=== PATIENT | male | born 1995 | race Two or more races ===

== ENCOUNTER 2022-06-10 11:51 | Emergency (ER) | payer MEDICAID ==
[~2022-06-10] VITALS: Ht 172.7 cm; Wt 114.0 kg
[2022-06-10] MEDS ORDERED: MIDAZOLAM HCL 2 MG/2 ML VIAL IV ONE ×3 (12:15→20:45)
[2022-06-10] MEDS ORDERED: SODIUM CHLORIDE 0.9% 1,000 ML IV ONE ×3 (12:15→20:45)
[2022-06-10 12:48] LABS: BASOPHILS % 0.4 % (0.0-2.0); EOSINOPHILS % 0.1 % (0.0-5.0); HEMATOCRIT. 42.1 % (42.0-52.0); HEMOGLOBIN. 14.1 g/dL (14.0-18.0); LYMPHOCYTES % 15.6 % (20.0-50.0); MEAN CORPUSCULAR HEMOGLOBIN 25.9 pg (28.0-32.0); MEAN CORPUSCULAR VOLUME 77.4 fL (80.0-94.0); MONOCYTES % 9.5 % (2.0-8.0); NEUTROPHILS % 74.4 % (40.0-76.0); PLATELET 357 x1000/uL (130-400); RED BLOOD CELL COUNT 5.44 mill/uL (4.7-6.1); RED CELL DISTRIBUTION WIDTH 15.2 % (11.6-14.6)
[2022-06-10 12:55] LABS: CHLORIDE 108 mEq/L (98-107)
[2022-06-10 13:05] LABS: ETHANOL BLOOD < 10 mg/dL
[2022-06-10] MEDS ORDERED: MIDAZOLAM HCL 2 MG/2 ML VIAL IV NR (14:00)
[2022-06-10] MEDS ORDERED: OLANZAPINE 10 MG/VIAL IM ONE (14:45)
[2022-06-10] MEDS ORDERED: OLANZAPINE 10 MG/VIAL IM NR (23:30)
[2022-06-11] MEDS ORDERED: MIDAZOLAM HCL 2 MG/2 ML VIAL IV NR (00:15)
[2022-06-11] MEDS ORDERED: DIPHENHYDRAMINE 50MG/ML VIAL IV ONE (02:45)
[2022-06-11] MEDS ORDERED: HALOPERIDOL LACTATE 5MG/ML VIAL IM ONE (02:45)
[2022-06-11 07:05] LABS: CLARITY URINE CLEAR (CLEAR); COLOR URINE DARK YELLOW (YELLOW); KETONES URINE NEGATIVE (NEGATIVE); LEUKOCYTE ESTERASE URINE NEGATIVE (NEGATIVE); NITRITE URINE NEGATIVE (NEGATIVE); OCCULT BLOOD URINE NEGATIVE (NEGATIVE); PH URINE 5.5 (4.5-8.0); PROTEIN URINE 1+ (NEGATIVE); SPECIFIC GRAVITY URINE 1.033 (1.005-1.030); UROBILINOGEN URINE 0.2 E.U./dL (0.2-1.0)
[2022-06-11 07:19] LABS: *AMPHETAMINES SCREEN URINE PRESUMTIVE POSITIVE (NEGATIVE); *BARBITURATES SCREEN URINE NEGATIVE (NEGATIVE); *BENZODIAZEPINES SCREEN URINE PRESUMTIVE POSITIVE (NEGATIVE); *COCAINE SCREEN URINE PRESUMTIVE POSITIVE (NEGATIVE); CANNABINOID URINE SCREEN PRESUMTIVE POSITIVE (NEGATIVE); METHADONE URINE SCREEN NEGATIVE (NEGATIVE); OPIATES URINE SCREEN NEGATIVE (NEGATIVE); PHENCYCLIDINE URINE SCREEN NEGATIVE (NEGATIVE)
[2022-06-11 07:58] VITALS: BP 134/77
== END 2022-06-11 09:15 | disposition left against medical advice (07) ==
LOC: ER 11:57
DX: F23 Brief psychotic disorder (principal); U07.1 COVID-19; F15.10 Other stimulant abuse, uncomplicated; R00.0 Tachycardia, unspecified; R45.851 Suicidal ideations; F14.10 Cocaine abuse, uncomplicated; F16.10 Hallucinogen abuse, uncomplicated; F12.10 Cannabis abuse, uncomplicated
CPT/HCPCS: 36415; 80053; 80305; 80307; 80320; 80329; 81003; 82962; 85025; 93005; 96361; 96372; 96374; 96375; 96376; 99285; C9803; J1200; J1630; J2250; J3490; J7030; U0003; U0005; Z7610; G0480

== ENCOUNTER 2022-06-30 16:44 | Emergency (ER) | payer MEDICAID ==
[~2022-06-30] VITALS: Ht 182.9 cm; Wt 100.0 kg
[2022-06-30 18:43] LABS: CHLORIDE 104 mEq/L (98-107)
[2022-06-30 18:45] LABS: BASOPHILS % 0.3 % (0.0-2.0); EOSINOPHILS % 0.2 % (0.0-5.0); HEMATOCRIT. 44.2 % (42.0-52.0); HEMOGLOBIN. 14.5 g/dL (14.0-18.0); LYMPHOCYTES % 19.5 % (20.0-50.0); MEAN CORPUSCULAR HEMOGLOBIN 25.6 pg (28.0-32.0); MEAN CORPUSCULAR VOLUME 78.4 fL (80.0-94.0); MEAN PLATELET VOLUME 8.2 fl (7.4-10.4); MONOCYTES % 9.5 % (2.0-8.0); NEUTROPHILS % 70.5 % (40.0-76.0); PLATELET 371 x1000/uL (130-400); RED BLOOD CELL COUNT 5.64 mill/uL (4.7-6.1); RED CELL DISTRIBUTION WIDTH 15.6 % (11.6-14.6)
[2022-06-30 18:53] LABS: ETHANOL BLOOD < 10 mg/dL
[2022-06-30] MEDS ORDERED: HALOPERIDOL LACTATE 5MG/ML VIAL IM ONE (19:15)
[2022-07-01] MEDS ORDERED: OLANZAPINE 2.5MG TABLET PO SCH (03:00)
[2022-07-01 03:01] LABS: CLARITY URINE CLEAR (CLEAR); COLOR URINE DARK YELLOW (YELLOW); KETONES URINE NEGATIVE (NEGATIVE); LEUKOCYTE ESTERASE URINE NEGATIVE (NEGATIVE); NITRITE URINE NEGATIVE (NEGATIVE); OCCULT BLOOD URINE NEGATIVE (NEGATIVE); PROTEIN URINE TRACE (NEGATIVE); SPECIFIC GRAVITY URINE 1.032 (1.005-1.030)
[2022-07-01 03:16] LABS: *AMPHETAMINES SCREEN URINE PRESUMTIVE POSITIVE (NEGATIVE); *BARBITURATES SCREEN URINE NEGATIVE (NEGATIVE); *BENZODIAZEPINES SCREEN URINE NEGATIVE (NEGATIVE); *COCAINE SCREEN URINE NEGATIVE (NEGATIVE); CANNABINOID URINE SCREEN PRESUMTIVE POSITIVE (NEGATIVE); METHADONE URINE SCREEN NEGATIVE (NEGATIVE); OPIATES URINE SCREEN NEGATIVE (NEGATIVE); PHENCYCLIDINE URINE SCREEN NEGATIVE (NEGATIVE)
[2022-07-01] MEDS ORDERED: OLANZAPINE 2.5MG TABLET PO NR (03:45)
[2022-07-01] MEDS ORDERED: LORAZEPAM 1MG TABLET PO ONE ×2 (05:30→14:30)
[2022-07-01] MEDS ORDERED: LORAZEPAM 1MG TABLET PO NR (08:15)
[2022-07-01] MEDS: VALPROIC ACID 250MG CAPSULE PO SCH ×2 (12:00→17:15)
[2022-07-01] MEDS: OLANZAPINE 5MG TABLET ODT PO SCH ×2 (12:00→17:15)
[2022-07-02] MEDS: OLANZAPINE 5MG TABLET ODT PO SCH (09:24)
[2022-07-02] MEDS: VALPROIC ACID 250MG CAPSULE PO SCH (09:24)
[2022-07-02 12:15] VITALS: BP 140/79
== END 2022-07-02 12:15 | disposition short-term general hospital (02) ==
LOC: ER 16:44
DX: R45.851 Suicidal ideations (principal); Z20.822 Contact with and (suspected) exposure to COVID-19; Z86.59 Personal history of other mental and behavioral disorders
CPT/HCPCS: 36415; 80053; 80305; 80307; 80320; 80329; 81001; 85025; 96372; 99285; C9803; J1630; U0003; U0005; G0480